=== PATIENT | male | born 1980 | race African-American/Black ===

== ENCOUNTER 2017-08-25 01:28 | Observation (INO) | payer SELFPAY, OTHER ==
[2017-08-25 03:27] LABS: ADD MAN DIFF? NO
[2017-08-25 03:29] LABS: WHITE BLOOD COUNT 6.3 10^3/ul (4.8-10.8)
[2017-08-25 03:29] LABS: BASOPHIL # 0.1 10^3/ul (0.0-0.1); BASOPHILS % 1.3 % (0.0-2.0); EOSINOPHILS # 0.1 10^3/ul (0.0-0.5); EOSINOPHILS % 1.1 % (0.0-7.0); HEMATOCRIT 36.4 % (42.0-52.0); HEMOGLOBIN 12.3 g/dl (14.0-18.0); LYMPHOCYTES # 2.1 10^3/ul (0.8-2.9); MEAN CORPUSCULAR HEMOGLOBIN 26.8 pg (29.0-33.0); MEAN CORPUSCULAR HGB CONC 33.8 g/dl (32.0-37.0); MEAN CORPUSCULAR VOLUME 79.3 fl (82.0-101.0); MEAN PLATELET VOLUME 9.4 fl (7.4-10.4); MONOCYTE # 0.6 10^3/ul (0.3-0.9); MONOCYTES % 9.9 % (0.0-11.0); NEUTROPHIL # 3.4 10^3/ul (1.6-7.5); NEUTROPHILS % 54.4 % (39.0-77.0); PLATELET COUNT 519 10^3/UL (140-415); RED BLOOD COUNT 4.59 10^6/ul (4.70-6.10); RED CELL DISTRIBUTION WIDTH 13.3 % (11.5-14.5)
[2017-08-25 03:53] LABS: INR 1.04; PARTIAL THROMBOPLASTIN TIME 35.7 Sec (25.0-35.0); PROTIME 13.7 Sec (11.9-14.9); PT RATIO 1.1
[2017-08-25 03:55] LABS: ALANINE AMINOTRANSFERASE 36 IU/L (13-69); ALBUMIN 4.2 g/dl (3.3-4.9); ALKALINE PHOSPHATASE 89 IU/L (42-121); ANION GAP 19 (8-16); ASPARTATE AMINO TRANSFERASE 26 IU/L (15-46); BILIRUBIN,INDIRECT 0.6 mg/dl (0-1.1); BILIRUBIN,TOTAL 0.6 mg/dl (0.2-1.3); BLOOD UREA NITROGEN 8 mg/dl (7-20); CALCIUM 9.9 mg/dl (8.4-10.2); CARBON DIOXIDE 27 mmol/L (21-31); CHLORIDE 101 mmol/L (97-110); CREATININE 0.94 mg/dl (0.61-1.24); GLUCOSE 107 mg/dl (70-220); LIPASE 25 U/L (23-300); POTASSIUM 3.7 mmol/L (3.5-5.1); SODIUM 143 mmol/L (135-144)
[2017-08-25 03:56] LABS: URINE PH (Dip) POC 5.5 (5.0-8.5)
[2017-08-25 03:56] LABS: URINE BLOOD (Dip) POC Trace-intact (NEGATIVE); URINE GLUCOSE (Dip) POC Negative (NEGATIVE); URINE KETONES (Dip) POC Negative (NEGATIVE); URINE LEUKOCYTE EST (Dip) POC Negative (NEGATIVE); URINE NITRITE (Dip) POC Negative (NEGATIVE); URINE TOTAL PROTEIN POC Negative (NEGATIVE)
[2017-08-25 04:10] LABS: TROPONIN-I < 0.012 ng/ml (0.00-0.12)
[2017-08-25 04:35] LABS: ADD UMIC NO; UR CLARITY CLEAR (CLEAR); UR COLOR YELLOW (YELLOW); URINE SPECIFIC GRAVITY (Dip) 1.025 (1.003-1.030)
[2017-08-25 04:36] LABS: UR BILIRUBIN (Dip) NEGATIVE (NEGATIVE); UR BLOOD (Dip) NEGATIVE (NEGATIVE); UR GLUCOSE (Dip) NEGATIVE (NEGATIVE); UR KETONES (Dip) NEGATIVE (NEGATIVE); UR LEUKOCYTE ESTERASE (Dip) NEGATIVE Leu/ul (NEGATIVE); UR NITRITE (Dip) NEGATIVE (NEGATIVE); UR TOTAL PROTEIN (Dip) NEGATIVE (NEGATIVE); UR UROBILINOGEN (Dip) 0.2 E.U./dL mg/dL (NEGATIVE)
[2017-08-25] MEDS: ASPIRIN 81 MG TAB PO (05:02)
[2017-08-25] MEDS: NITROGLYCERIN 2% 1 GM OINT PKT TD ×2 (05:03→05:04)
[2017-08-25 05:14] LABS: AMPHETAMINE/METHAMPHETAMINE Negative (NEGATIVE); BARBITURATES Negative (NEGATIVE); BENZODIAZEPINES Negative (NEGATIVE); CANNABINOIDS Negative (NEGATIVE); OPIATES Negative (NEGATIVE)
[2017-08-25 05:35] LABS: COCAINE Negative (NEGATIVE)
[2017-08-25] MEDS ORDERED: traMADol 50 MG TAB PO (07:30)
[2017-08-25] MEDS ORDERED: NITROGLYCERIN (SL) 0.4 MG TAB SL (07:30)
[2017-08-25] MEDS ORDERED: ONDANSETRON 4 MG INJ IV (07:30)
[2017-08-25] MEDS ORDERED: ALBUTEROL/IPRATROPIUM (NEB) 3 ML AMP HHN (07:30)
[2017-08-25] MEDS ORDERED: NACL 0.9% 3 ML SYG IV (07:30)
[2017-08-25] MEDS: ENOXAPARIN 40 MG/0.4 ML SYG SC (10:11)
[2017-08-25 11:36] LABS: CREATINE KINASE 148 IU/L (23-200)
[2017-08-25 11:48] LABS: CK INDEX 0.2
[2017-08-25 11:51] LABS: CK-MB 0.23 ng/ml (0.0-2.4); TROPONIN-I < 0.012 ng/ml (0.00-0.12)
[2017-08-25] MEDS: traMADol 50 MG TAB PO ×3 (12:02→15:07)
[2017-08-25 17:37] LABS: CREATINE KINASE 168 IU/L (23-200)
[2017-08-25 17:50] LABS: CK INDEX 0.2; TROPONIN-I < 0.012 ng/ml (0.00-0.12)
[2017-08-26] MEDS: ACETAMINOPHEN 325 MG TAB PO (05:55)
[2017-08-26 06:30] LABS: ADD MAN DIFF? NO
[2017-08-26 06:42] LABS: BASOPHIL # 0.1 10^3/ul (0.0-0.1); BASOPHILS % 1.7 % (0.0-2.0); EOSINOPHILS # 0.1 10^3/ul (0.0-0.5); EOSINOPHILS % 1.5 % (0.0-7.0); HEMATOCRIT 34.5 % (42.0-52.0); HEMOGLOBIN 11.4 g/dl (14.0-18.0); LYMPHOCYTES # 1.5 10^3/ul (0.8-2.9); LYMPHOCYTES % 37.5 % (15.0-51.0); MEAN CORPUSCULAR HEMOGLOBIN 25.9 pg (29.0-33.0); MEAN CORPUSCULAR VOLUME 78.4 fl (82.0-101.0); MEAN PLATELET VOLUME 9.1 fl (7.4-10.4); MONOCYTE # 0.7 10^3/ul (0.3-0.9); MONOCYTES % 15.8 % (0.0-11.0); NEUTROPHIL # 1.8 10^3/ul (1.6-7.5); NEUTROPHILS % 43.3 % (39.0-77.0); PLATELET COUNT 459 10^3/UL (140-415); RED CELL DISTRIBUTION WIDTH 13.5 % (11.5-14.5)
[2017-08-26 06:42] LABS: WHITE BLOOD COUNT 4.1 10^3/ul (4.8-10.8)
[2017-08-26 07:29] LABS: ALANINE AMINOTRANSFERASE 32 IU/L (13-69); ALBUMIN 3.9 g/dl (3.3-4.9); ALBUMIN/GLOBULIN RATIO 1.05; ALKALINE PHOSPHATASE 80 IU/L (42-121); ANION GAP 13 (8-16); ASPARTATE AMINO TRANSFERASE 19 IU/L (15-46); BILIRUBIN,INDIRECT 0.7 mg/dl (0-1.1); BILIRUBIN,TOTAL 0.7 mg/dl (0.2-1.3); BLOOD UREA NITROGEN 12 mg/dl (7-20); CALCIUM 9.8 mg/dl (8.4-10.2); CARBON DIOXIDE 29 mmol/L (21-31); CHLORIDE 102 mmol/L (97-110); CHOL/HDL RATIO 5.6 RATIO; CHOLESTEROL 174 mg/dl (100-200); GLUCOSE 91 mg/dl (70-220); HDL CHOLESTEROL 31 mg/dl (28-63); LDL CHOLESTEROL,CALCULATED 125 mg/dl; POTASSIUM 4.2 mmol/L (3.5-5.1); SODIUM 140 mmol/L (135-144); TOTAL PROTEIN 7.6 g/dl (6.1-8.1); TRIGLYCERIDES 92 mg/dl (0-149)
[2017-08-26 07:40] LABS: THYROID STIMULATING HORMONE 0.555 MIU/L (0.465-4.680)
[2017-08-26 07:45] LABS: HEMOGLOBIN A1C 5.5 % (0-5.9)
[2017-08-26] MEDS: ASPIRIN 81 MG TAB PO (10:02)
[2017-08-26] MEDS: traMADol 50 MG TAB PO ×2 (10:02→19:21)
[2017-08-26] MEDS: ENOXAPARIN 40 MG/0.4 ML SYG SC (10:06)
== END 2017-08-26 19:29 | disposition home or self-care (01) ==
LOC: E/R 01:28 → MS3 04:49
DX: R07.9 Chest pain, unspecified (principal); I10 Essential (primary) hypertension; M79.7 Fibromyalgia; K51.90 Ulcerative colitis, unspecified, without complications; F43.10 Post-traumatic stress disorder, unspecified
CPT/HCPCS: 36415; 71010; 80053; 80061; 80307; 81003; 82550; 82553; 83036; 83690; 83735; 84443; 84484; 85025; 85610; 85730; 93005; 93306; 93970; 99285-25